=== PATIENT | male | born 1965 | race Caucasian/White ===

== ENCOUNTER 2016-11-26 13:27 | Outpatient (CLI) | payer BC ==
[~2016-11-26] VITALS: Ht 185.4 cm; Wt 110.7 kg
[~2016-11-26 13:27] MED LIST: ASPI-587 PO; ATEN100T88 PO; ATN50T; ATOR20TA66 PO; HYDR-757 PO; LEVO500T69 PO; LISI10TA2 PO; LISI5TAB PO; METR500T PO; MTF500T PO; OMEG1CAP51 PO; OXYC-12 PO; PARO40TA2 PO; PRD20T PO; PRX20T PO; RAMI1.25; SULF1TAB35 PO; WARF2.5T56 PO; WRF5T; WRF5T PO
--- OUTSIDE RECORDS SUMMARY | 2016-11-26 13:32 | XMS REPORT | Continuity of Care Document ---
Author Author [facility] Organization [facility] Address Unknown Phone Unavailable Care Team Providers Care Food And Beverage Checker Name Role Phone Unverified, Unverified PCP Unavailable Source Comments Some departments are not documenting in the electronic medical record. If you do not see the information that you expected, contact Release of Information in the Health Information Management department at [phone] for further assistance in locating additional records.[facility] Active Allergies and Adverse Reactions Not on File Current Medications Not on file Active Problems Not on file Social History Tobacco Use Types Packs/Day Years Used Date Never Assessed Plan of Care Health Maintenance Due Date Last Done Comments Physical (Comprehensive) 1970 Exam Pertussis Vaccine 1974 Tetanus Vaccine 02/08/1980 Colorectal Cancer 2013 Screening Influenza Vaccine 05/28/2016 Results from Last 3 Months Not on file
[2016-11-26 13:35] VITALS: BP 143/102
[2016-11-26] MEDS ORDERED: WARF-48 PO (13:40)
[2016-11-26 14:00] LABS: BASOPHILS % (AUTO) 1 % (0-10); EOSINOPHILS # (AUTO) 0.2 10^3/uL (0.0-0.3); EOSINOPHILS % (AUTO) 3 % (0-10); LYMPHOCYTES # (AUTO) 1.3 X 10^3 (1.0-4.0); LYMPHOCYTES % (AUTO) 28 % (12-44); MEAN CORPUSCULAR HEMOGLOBIN 33 PG (25-34); MEAN CORPUSCULAR HGB CONC 37 G/DL (32-36); MEAN CORPUSCULAR VOLUME 90 FL (80-99); MEAN PLATELET VOLUME 11.4 FL (7.4-10.4); MONOCYTES # (AUTO) 0.4 X 10^3 (0.0-1.0); MONOCYTES % (AUTO) 9 % (0-12); NEUTROPHILS # (AUTO) 2.8 X 10^3 (1.8-7.8); NEUTROPHILS % (AUTO) 59 % (42-75); PLATELET COUNT 140 10^3/uL (130-400); RED BLOOD COUNT 4.56 10^6/uL (4.35-5.85); RED CELL DISTRIBUTION WIDTH 12.4 % (10.0-14.5); WHITE BLOOD COUNT 4.7 10^3/uL (4.3-11.0)
== END 2016-11-26 13:50 | disposition home or self-care (01) ==
LOC: PREOP 13:27
PROVIDERS: ATTEND Surgery Pediatric Surgery
DX: Z01.812 Encounter for preprocedural laboratory examination (principal); Z11.2 Encounter for screening for other bacterial diseases; K80.20 Calculus of gallbladder without cholecystitis without obstruction
CPT/HCPCS: 36415; 85025; 87081

== ENCOUNTER 2016-12-03 06:49 | Day surgery (SDC) | payer BC, OTHER ==
[~2016-12-03] VITALS: Ht 185.4 cm; Wt 110.7 kg
[~2016-12-03 06:49] MED LIST changes: +WARF-48 PO
--- OUTSIDE RECORDS SUMMARY | 2016-12-03 06:53 | XMS REPORT | Continuity of Care Document ---
Author Author [facility] Organization [facility] Address Unknown Phone Unavailable Care Team Providers Care Theater Projectionist Name Role Phone Unverified, Unverified PCP Unavailable Source Comments Some departments are not documenting in the electronic medical record. If you do not see the information that you expected, contact Release of Information in the Health Information Management department at [phone] for further assistance in locating additional records.[facility] Active Allergies and Adverse Reactions Not on [...]
--- OUTSIDE RECORDS SUMMARY | 2016-12-03 06:53 | XMS REPORT | Continuity of Care Document ---
Author Author [facility] Organization [facility] Address Unknown Phone Unavailable Care Team Providers Care Quirk Sander Name Role Phone Unverified, Unverified PCP Unavailable Source Comments Some departments are not documenting in the electronic medical record. If you do not see the information that you expected, contact Release of Information in the Health Information Management department at [phone] for further assistance in locating additional records.[facility] Active Allergies and Adverse Reactions Not [...]
[2016-12-03] MEDS ORDERED: BUP/EPI 0.5% 1:200,000 (SENSORCAINE) 30 ML VIAL ONE (07:08)
[2016-12-03] MEDS ORDERED: ceFAZolin 1,000 MG (ANCEF) VIAL ONE (07:20)
[2016-12-03] MEDS ORDERED: NS (IVPB) 50 ML ONE (07:21)
[2016-12-03 07:30] VITALS: BP 162/109
[2016-12-03 07:39] LABS: INR 1.1 (0.8-1.4); PROTHROMBIN TIME PATIENT 14.1 SEC (12.2-14.7)
[2016-12-03] MEDS ORDERED: MIDAZOLAM 2 MG/2 ML (VERSED) VIAL ONE (07:42)
[2016-12-03] MEDS ORDERED: fentaNYL INJECTION 100 MCG/2 ML AMP ONE ×2 (07:42→09:05)
[2016-12-03] MEDS: LACTATED RINGERS 1,000 ML IV PRN ×2 (07:45→08:49)
[2016-12-03] MEDS ORDERED: ceFAZolin 1 GM/NS 50 ML IVPB IV ONE ×2 (07:45)
[2016-12-03] MEDS ORDERED: ONDANSETRON 4 MG/2 ML (SDV) Z0FRAN ONE (07:49)
[2016-12-03] MEDS ORDERED: proPOfol 200 MG/20 ML (DIPRIVAN) VIAL IV ONE (07:49)
[2016-12-03] MEDS ORDERED: SEVOFLURANE (ULTANE) 15 ML INHAL SOLN ONE ×3 (07:49→09:22)
[2016-12-03] MEDS ORDERED: ROCURONIUM 50 MG/5 ML (ZEMURON) VIAL IV ONE (07:49)
[2016-12-03] MEDS ORDERED: LACTATED RINGERS 1,000 ML IV ONE ×3 (07:49→09:29)
--- NOTE | 2016-12-03 07:56 | Progress Note-Pre Operative ---
Pre-Operative Progress Note H&P Reviewed The H&P was reviewed, patient examined and no changes noted. Date H&P Reviewed: Dec 03, 2016 Time H&P Reviewed: 07:45 Pre-Operative Diagnosis: Chronic Calculous Cholecystitis CANDICE LUBIN APRN Dec 03, 2016 7:56 am
[2016-12-03] MEDS ORDERED: HYDROcodone/APAP 5 MG/325 MG (LORTAB) TAB PO NR (08:00)
[2016-12-03] MEDS ORDERED: ONDANSETRON 4 MG/2 ML (SDV) Z0FRAN IVP PRN (08:00)
[2016-12-03] MEDS ORDERED: ACETAMINOPHEN 325 MG TABLET/CAPLET (TYLENOL) PO PRN (08:00)
[2016-12-03] MEDS ORDERED: KETOROLAC 30 MG/ML VIAL ONE (09:22)
[2016-12-03] MEDS ORDERED: PHENYLEPHRINE 100 MCG/ML 10 ML (ANESTHESIA) SYR ONE (09:22)
[2016-12-03] MEDS ORDERED: NEOSTIGMINE (BLOXIVERZ ) 1 MG/1ML 10 ML VIAL ONE (09:24)
[2016-12-03] MEDS ORDERED: GLYCOPYRROLATE 0.2 MG/ML (ROBINUL) 2 ML VIAL ONE (09:24)
--- NOTE | 2016-12-03 09:25 | Progress Note-Post Operative ---
Post-Operative Progess Note Cloth Beamer enrique pettit DRESS FINISHER Pre-Operative Diagnosis Chronic Calculous Cholecystitis Post-Operative Diagnosis same Post-Op Procedure Note Date of Procedure: Dec 03, 2016 Name of Procedure: laparoscopic cholecystectomy Anesthesia Type GET Estimated blood loss (mL): minimal Specimen(s) collected gallbladder HERBER BABIN MD Dec 03, 2016 9:25 am
[2016-12-03] MEDS ORDERED: HYDR-3730 PO (09:27)
--- NOTE | 2016-12-03 09:29 | Discharge Inst-Surgical ---
D/C Lap Instructions-TALYA New, Converted, or Re-Newed RX: RX on Chart Follow Up Appt in 2 weeks Activity as tolerated No driving for 24 hours No driving while on pain medications Incentive Spirometry use every 2 hours while awake Regular Diet Symptoms to Report: Fever over 101 degree F, Nausea/Vomiting Infection Signs and Symptoms to report: Increased redness, Foul odor of wound, Increased drainage Bathing instructions: May shower Operative Area Clean/Dry; Keep incision clean/dry If any problems/questions: Contact your physician or go to Emergency Room HERBER BABIN MD Dec 03, 2016 9:29 am
[2016-12-03] MEDS ORDERED: morphine INJ 10 MG/ML 1ML (SYR OR VIAL) ONE (09:43)
[2016-12-03] MEDS: morphine INJ 10 MG/ML 1ML (SYR OR VIAL) IVP PRN ×2 (10:00→10:05)
--- NOTE | 2016-12-03 10:39 | OPERATIVE REPORT ---
PROCEDURE PHYSICIAN: HERBER BRANDON DATE OF PROCEDURE: 12/03/2016 ATTENDING PRIMARY ENROLLMENT REPRESENTATIVE: JOHNNY Sahu. PREOPERATIVE DIAGNOSIS: Symptomatic chronic calculus cholecystitis. POSTOPERATIVE DIAGNOSIS: Symptomatic chronic calculus cholecystitis. PROCEDURE: Laparoscopic cholecystectomy. SURGEON: Dr. Brandon. TAG CLERK: James Acharya APRN. ANESTHESIA: General endotracheal. ESTIMATED BLOOD LOSS: Minimal. FINDINGS: Chronically inflamed gallbladder with multiple gallstones. DISPOSITION: The patient tolerated the procedure well. BRIEF HISTORY: Mr. Heriberto Fields is a 50-year-old male who we have seen before in the past. We had initially seen him in 2013 for rectal bleeding, as well as crampy abdominal pain. A CT scan was performed, which did show mild inflammation of the descending colon. A CT scan also showed cholelithiasis. He underwent a colonoscopy which showed hemorrhoids; however, the remainder of the colon was normal. In the past 6 years he has had intermittent episodes of right upper abdominal quadrant pain usually following meals. He states in the past few months he has had 2 episodes of significant pain in the right upper abdominal quadrant with radiation towards the back after taking in a meal. This is consistent with a chronic calculus cholecystitis. PROCEDURE: The patient was brought to the operating room, laid supine on the table. After adequate IV pain and sedative medications and general endotracheal intubation, the abdomen was prepped and draped in standard surgical fashion. 0.5% Marcaine with epinephrine was used to anesthetize the overlying skin in the left upper abdominal quadrant and a small transverse incision was made using a 15 blade. A 0 silk suture was applied to the medial aspect of the incision for retraction and a Veress needle inserted with a low opening pressure of 0 mmHg and the abdomen was then insufflated to 15 mmHg pressure. The Veress needle was then removed and a 5 mm Xcel trocar placed followed by a 5 mm, 45 degree angle laparoscope, visualizing the peritoneal cavity. A four-quadrant abdominal exploration was performed. There was mild hepatomegaly, as well as thick omentum and mesentery. The omentum was attached to the gallbladder with some mild to moderate gallbladder wall thickening. Under direct visualization we then proceeded to place a supraumbilical 10 mm port after the skin and peritoneum were anesthetized using 0.5% Marcaine with epinephrine and a transverse skin incision made using a 15 blade. In a similar manner, a right upper abdominal quadrant a 5 mm port was placed. The patient was then placed in reverse Trendelenburg position as well as planed right side up, left side down. The omental adhesions to the gallbladder were then taken down using electrocautery on the hook instrument as well as blunt dissection. The fundus of the gallbladder was then retracted anteriorly and superiorly. The hepatoduodenal ligament was then opened using electrocautery and blunt dissection and the entire critical view of safety was identified including the triangle of Calot, the cystic duct and artery going into the gallbladder, as well as the liver behind the proximal gallbladder. A timeout was then taken and the cystic duct and artery were clipped proximally and distally and cut with Endo Josesito. The gallbladder was then dissected off the liver bed using the hook instrument and electrocautery with visualization of good hemostasis, as well as no leaking ducts of Luschka. The gallbladder was removed through the 10 mm port site using an Endo Catch bag. The fascia and peritoneum were then closed under direct visualization Benny-Queenie device and 0 Vicryl suture. The abdomen was desufflated and remaining ports removed. All skin incisions were closed using 4-0 Monocryl running subcuticular sutures. Wounds were then cleaned and covered with Dermabond. The patient tolerated the procedure well. We will start IV and oral pain medication as well as a clear liquid diet. Once he is tolerating clears, has good pain control with oral pain medications and ambulating well, we will discharge him home. Job ID: [id number] Dictated Date: 12/03/2016 09:40:24 Apartment Leasing Specialist Date: 12/03/2016 10:26:46 / stefanie
[2016-12-03 10:40] VITALS: BP 135/100
[2016-12-03 11:10] VITALS: BP 142/106
[2016-12-03 11:20] VITALS: BP 142/106
== END 2016-12-03 11:20 | disposition home or self-care (01) ==
LOC: SDC 06:49
PROVIDERS: ATTEND Surgery Pediatric Surgery
DX: K80.10 Calculus of gallbladder with chronic cholecystitis without obstruction (principal); Z79.01 Long term (current) use of anticoagulants
CPT/HCPCS: 36415; 82962; 85610; 88304; 94664

== ENCOUNTER → 2017-02-15 | Outpatient (CLI) | payer BC ==
[~2017-02-15] MED LIST changes: +HYDR-3730 PO
[2017-02-15 11:05] LABS: ANION GAP 9 MMOL/L (5-14); BLOOD UREA NITROGEN 10 MG/DL (7-18); BUN/CREATININE RATIO 12; CALCIUM 9.4 MG/DL (8.5-10.1); CARBON DIOXIDE 24 MMOL/L (21-32); CHLORIDE 104 MMOL/L (98-107); CREATININE SERUM 0.81 MG/DL (0.60-1.30); GFR ESTIMATED > 60; GLUCOSE 202 MG/DL (70-105); POTASSIUM 4.6 MMOL/L (3.6-5.0); SODIUM 137 MMOL/L (135-145)
== END ==
LOC: LAB 10:29
PROVIDERS: ATTEND Nurse Practitioner Family
DX: I10 Essential (primary) hypertension (principal)
CPT/HCPCS: 36415; 80048